=== PATIENT | male | born 1945 | race Caucasian/White ===

== ENCOUNTER 2020-07-09 11:27 | Inpatient (IN) | payer OTHER ==
[~2020-07-09] VITALS: Ht 180.3 cm; Wt 88.1 kg
--- NOTE | ~2020-07-09 | EMS ---
[address] [address] EMS Patient Care Report Name: KISHORE BRYAN Room #: REG MILY Chandler#: [id number] Admission: 07/09/20 Attend Phys: Discharge: Date of : 45 Report #: [id number] THIS REPORT FOR: //name// Report Transmitted: 07/09/2020 12:25 EMS Care Summary [facility] MED-ACT Incident [phone] @ 07/09/2020 10:36 Incident Location [address] [place] [id number] Patient KISHORE BRYAN Male, 75 Years 1945 Patient Address [address] [place] [address] Patient History Other,Dementia,Hypertension (HTN),Hyperlipidemia,Pneumonia,Depression,Neuropathy,Sepsis,Type 2 Diabetes,Respiratory Failure,Myocardial Infarction (NH),Novel Coronavirus (COVID-19), Patient Allergies Penicillin allergy, Patient Medications Other, Novolog, Moxifloxacin, Vitamin D, Lantus, Pantoprazole, Namenda, Bacitracin, Ascorbic Acid, Prednisone, Gabapentin, Chief Complaint Shortness of breath Disposition Transported No Lights/[place] Dispatch Reason Breathing Problem Transported To [address] [address] EMS Patient Care Report Name: KISHORE BRYAN Room #: REG MILY Chandler#: [id number] Admission: 07/09/20 Attend Phys: Discharge: Date of : 45 Report #: [id number] Narrative CHIEF COMPLAINT: Shortness of breath H.P.I.: Kishore Bryan, a 75 y.o.m., has been short of breath for 3 weeks. He has been dx'd COVID-19 (+) 3 weeks ago. He hasn't had an change in his shortness of breath, but his granddaughter wanted him transported today to be evaluated. UPON ARRIVAL: Kishore was sitting in a wheel chair at the nurse's station. He was awake and in no distress. O2 was being provided at 8 LPM via NRB mask (as applied by the facility nurse). [facility] was on scene and was obtaining v/s. They reported an initial SPO2 on 8 LPM at 94%. No room air SpO2 was provided. When asked, Kishore reported the O2 made his breathing easier. My partner reported he heard a staff member state Kishore had a diagnosis of pneumonia, as well. DISPOSITION: We assisted Kishore to the stretcher and secured him in the prescribed manner. He was taken to the ambulance, and before transport an ECG/ 12-Lead was obtained. Many changes were noted, consistent with long-term issues and not acute. His paperwork did not list any cardiac history. Transport was non-emergent to [facility] as directed by the nursing facility staff. No incidents or changes; v/s, ECG/ 12-Lead monitored. Kishore rested comfortably; he complained of being cold, so another blanket was applied. Info-only radio report parikh to [facility] ED. We were directed to room qo. We slid Mr. Bryan to the hospital bed. Report was received by Dr. Nikolas M.D. Initial Vitals @11:02P: 80,R: 20,BP: 153/54,Pain: 0/10,GCS: 15,SpO2: 95,Revised Trauma: 12, @11:06P: 114,Pain: 0/10,SpO2: 97,NH Suspected: false @11:16P: 90,R: 20,BP: 144/87,Pain: 0/10,GCS: 15,SpO2: 98,Revised Trauma: 12, @PTAP: 98,R: 24,BP: 152/84,Pain: 0/10,Temp: 97.5F,SpO2: 98, Assessments @10:55MENTAL:Person Oriented,Time Oriented,Place Oriented,Event Oriented,SKIN:HEENT:Head/Face: No Abnormalities,Eyes: No Abnormalities,Neck/Airway: No Abnormalities,LUNG SOUNDS:ABDOMEN:PELVIS//GI:EXTREMITIES:Right Leg: Edema,Left Leg: Edema,Right Arm: No Abnormalities,PULSE:Radial: 2+ Normal,NEURO: Impression Shortness of breath [facility] [address] [place] [address] EMS Patient Care Report Name: KISHORE BRYAN Room #: LUIS Chandler#: [id number] Admission: 07/09/20 Attend Phys: Discharge: Date of : 45 Report #: [id number] Procedures @11:0612-Lead ECGResponse: UnchangedSucceeded@PTASurgical Mask on PatientResponse: Unchanged@PTAOxygen FlowRate: 8 Device: Non Re-breather Mask (NRB) Response: ImprovedSucceeded@11:05Oxygen FlowRate: 15 Device: Non Re-breather Mask (NRB) Response: UnchangedSucceeded Timeline CAPACITY PLANNING ENGINEER,Surgical Mask on Patient,Response: Unchanged CAPACITY PLANNING ENGINEER,Oxygen FlowRate: 8 Device: Non Re-breather Mask (NRB) Response: ImprovedSucceeded, CAPACITY PLANNING ENGINEER,BP: 152/84 M,PULSE: 98,RR: 24 R,SPO2: 98 Ox,ETCO2: ,BG: ,PAIN: 0,GCS: , 10:35,Call Received 10:35,Psap Call 10:36,Dispatched 10:37,En Route 10:52,On Scene 10:52,At Patient 11:02,BP: 153/54 M,PULSE: 80,RR: 20 R,SPO2: 95 Ox,ETCO2: ,BG: ,PAIN: 0,GCS: 15, 11:05,Oxygen FlowRate: 15 Device: Non Re-breather Mask (NRB) Response: UnchangedSucceeded, 11:06,12-Lead ECG,Response: UnchangedSucceeded, 11:06,BP: / M,PULSE: 114,RR: R,SPO2: 97 Ox,ETCO2: ,BG: ,PAIN: 0,GCS: , 11:08,Depart Scene 11:16,BP: 144/87 M,PULSE: 90,RR: 20 R,SPO2: 98 Ox,ETCO2: ,BG: ,PAIN: 0,GCS: 15, 11:21,At Destination 11:46,Call Closed Disclaimer v1.1 Copyright 2020 [employer] This EMS Care Summary contains data elements from the applicable legal record (which may be displayed differently). It is designed to provide pertinent information for the following purposes: continuity of care, clinical quality, and state data reporting. The complete legal record is available to ED staff and administrators of the receiving hospital in [employer]'s Patient Tracker. All data is provided "as is."
[2020-07-09 11:28] VITALS: BP 134/64
[2020-07-09 12:05] LABS: ABSOLUTE NEUTROPHILS 7.1 thou/uL (1.4-8.2); BASOPHILS 0.3 % (0.0-2.0); EOSINOPHILS 3.1 % (0.0-3.0); HEMATOCRIT 31.8 % (42.0-52.0); HEMOGLOBIN 10.4 gm/dL (14.0-18.0); LYMPHOCYTES 4.7 % (24.0-44.0); MCH 30.8 pg (26.0-34.0); MCHC 32.6 g/dL (28.0-37.0); MCV 94.5 fL (80.0-100.0); MONOCYTES 3.1 % (1.0-8.0); PLATELET COUNT 247 thou/uL (150-400); POLYS 88.8 % (36.0-66.0); RBC 3.36 mil/uL (4.50-6.00); RDW 14.7 % (10.5-14.5)
[2020-07-09 12:27] LABS: ANION GAP 9 mmol/L (7-16); BUN 31 mg/dL (7-18); CALCIUM 8.2 mg/dL (8.5-10.1); CHLORIDE 102 mmol/L (98-107); CO2 26 mmol/L (21-32); CREATININE 1.5 mg/dL (0.7-1.3); GLUCOSE 234 mg/dL (74-106); SODIUM 137 mmol/L (136-145)
[2020-07-09 12:32] LABS: SGOT 11 U/L (15-37); SGPT 12 U/L (16-63); TOTAL BILIRUBIN 0.4 mg/dL (0.2-1.0); TOTAL PROTEIN 5.8 g/dL (6.4-8.2); TROPONIN-I <0.06 ng/mL (<0.06)
[2020-07-09 13:05] LABS: BE(vivo) -2.1 mmol/L (-2 to +3); PCO2 35.4 mmHg (35.0-45.0); PO2 49.8 mmHg (80.0-100.0); pH 7.412 (7.360-7.450)
[2020-07-09 17:35] VITALS: BP 134/64
[2020-07-09] MEDS ORDERED: ARICEPT 5 MG TAB5 MG PO (18:12)
[2020-07-09] MEDS ORDERED: VITAMIN C500 M1 PO (18:12)
[2020-07-09] MEDS ORDERED: ATORVASTATIN CA20 MG PO (18:13)
[2020-07-09] MEDS ORDERED: METFORMIN HCL500 M3 PO (18:14)
[2020-07-09] MEDS ORDERED: CARDURA2 MG PO (18:14)
[2020-07-09] MEDS ORDERED: TOPROL XL50 MG (18:15)
[2020-07-09] MEDS ORDERED: MIRTAZAPINE7.5 MG PO (18:15)
[2020-07-09] MEDS ORDERED: TRAMADOL 50 MG50 MG PO (18:16)
[2020-07-09] MEDS ORDERED: ZINC SULFATE220 MG PO (18:16)
[2020-07-09] MEDS ORDERED: ACCUPRIL10 MG PO (18:16)
[2020-07-09 18:17] VITALS: BP 132/81
--- NOTE | 2020-07-09 19:07 | NUR ---
PATIENT ADMIT TO UNIT AT 1845 ON 15L NRB. ALERT. WILL KEEP MONITOR.
--- NOTE | 2020-07-09 23:01 | NUR ---
COMPLAINS THAT HE THINKS HE HAD A TEMPERATURE AT THE [facility]. HE IS AFEBRILE TONIGHT AT TIME OF ADMISSION TO [facility]. ALERT AND ORIENTED FOR THE MOST PART, HE IS UNSURE OF HIS PLAN, AND REASON FOR ADMISSION. HE IS SLOW TO ANSWER QUESTIONS, NEEDS TIME TO ANSWER. ORIENTED TO ROOM AND SURROUNDINGS. DENIES PAIN. CAREPLAN INITIATED.
[2020-07-09 23:21] VITALS: BP 135/69
[2020-07-10 03:53] VITALS: BP 131/69
[2020-07-10 07:46] VITALS: BP 153/92
[2020-07-10 09:39] LABS: HEMATOCRIT 27.8 % (42.0-52.0); MCH 30.5 pg (26.0-34.0); MCHC 32.5 g/dL (28.0-37.0); RBC 2.95 mil/uL (4.50-6.00); RDW 14.4 % (10.5-14.5); WBC 6.7 thou/uL (4.0-11.0)
[2020-07-10 09:54] LABS: ANION GAP 7 mmol/L (7-16); BUN 29 mg/dL (7-18); CALCIUM 8.3 mg/dL (8.5-10.1); CHLORIDE 104 mmol/L (98-107); CO2 27 mmol/L (21-32); CREATININE 1.5 mg/dL (0.7-1.3); GLUCOSE 113 mg/dL (74-106); POTASSIUM 3.5 mmol/L (3.5-5.1); SODIUM 138 mmol/L (136-145); TROPONIN-I <0.06 ng/mL (<0.06)
[2020-07-10 11:31] LABS: BE(vivo) -9.3 mmol/L (-2 to +3); HCO3 19.8 mmol/L (22.0-26.0); PCO2 60.1 mmHg (35.0-45.0); PO2 61.6 mmHg (80.0-100.0); sO2 83.2 % (92.0-98.0)
[2020-07-10 11:32] LABS: pH 7.136 (7.360-7.450)
[2020-07-10 11:45] LABS: HEMATOCRIT 28.3 % (42.0-52.0); MCH 30.5 pg (26.0-34.0); MCHC 31.6 g/dL (28.0-37.0); MCV 96.4 fL (80.0-100.0); RBC 2.93 mil/uL (4.50-6.00); RDW 14.8 % (10.5-14.5); WBC 15.6 thou/uL (4.0-11.0)
[2020-07-10 11:48] LABS: CALCIUM 8.6 mg/dL (8.5-10.1); CREATININE 2.1 mg/dL (0.7-1.3); POTASSIUM 3.6 mmol/L (3.5-5.1)
[2020-07-10 11:49] LABS: INR 1.4; PLATELET COUNT 303 thou/uL (150-400); PROTIME 13.9 Seconds (9.3-11.4)
[2020-07-10 11:54] LABS: ALBUMIN 1.4 g/dL (3.4-5.0); TOTAL BILIRUBIN 0.4 mg/dL (0.2-1.0); TOTAL PROTEIN 5.2 g/dL (6.4-8.2)
--- NOTE | 2020-07-10 12:14 | EKG ---
[address] [address] ELECTROCARDIOGRAM REPORT Name: PRAVEENA BRYAN Room #: 246-P ADM IN M.R.#: [id number] Admission: 07/09/20 Attend Phys: Libby Lucio MD Discharge: Date of : 45 Report #: [id number] [facility] Test Date: 2020-07-10 Test Time: 11:36:22 Pat Name: PRAVEENA BRYAN Department: Room: 246 Gender: M Machine Greaser: MILAGROS : 1945 Requested By: Libby Lucio Order Number: [id number] MD: Margarito Moeller Measurements Intervals [place] Rate: 115 P: 33 NM: 150 QRS: 138 QRSD: 170 T: -21 QT: 371 QTc: 513 Interpretive Statements Sinus tachycardia RBBB and LPFB No previous ECG available for comparison Electronically Signed On 07-10-2020 12:14:33 PRODUCTION LINE WORKER by Margarito Moeller [email or web address] <ELECTRONICALLY SIGNED> By: Margarito Moeller MD 07/10/20 1214 1136 1136 Margarito Moeller MD /ARNOL
--- NOTE | 2020-07-10 12:15 | EKG ---
[address] [address] ELECTROCARDIOGRAM REPORT Name: PRAVEENA BRYAN Room #: 246-P ADM IN M.R.#: [id number] Admission: 07/09/20 Attend Phys: Libby Lucio MD Discharge: Date of : 45 Report #: [id number] [facility] Test Date: 2020-07-10 Test Time: 11:03:46 Pat Name: PRAVEENA BRYAN Department: Room: 246 Gender: M Hoop Expander: MILAGROS : 1945 Requested By: Sher Guardado Order Number: [id number] MD: Margarito Moeller Measurements Intervals [place] Rate: 136 P: 0 VA: 99 QRS: 133 QRSD: 169 T: -2 QT: 396 QTc: 596 Interpretive Statements Sinus tachycardia RBBB and LPFB No ischemic changes Baseline wander in lead(s) V1,V2 No previous ECG available for comparison Electronically Signed On 07-10-2020 12:15:10 TAPPER BALANCE WHEEL SCREW HOLE by Margarito Moeller [email or web address] <ELECTRONICALLY SIGNED> By: Margarito Moeller MD 07/10/20 1215 1103 02 Margarito Moeller MD /ARNOL
[2020-07-10 12:27] LABS: ABSOLUTE NEUTROPHILS 10.9 thou/uL (1.4-8.2); NUCLEATED RBCS 1 /100WBC
[2020-07-10 12:28] LABS: PLATELET ESTIMATE NORMAL
[2020-07-10 12:52] LABS: BE(vivo) -9.3 mmol/L (-2 to +3); HCO3 19.6 mmol/L (22.0-26.0); PO2 82.6 mmHg (80.0-100.0); pH 7.147 (7.360-7.450); sO2 92.6 % (92.0-98.0)
--- NOTE | 2020-07-10 13:01 | NUR ---
CONSULTED TO PLACE A PIV DUERING CODE BLUE, A CENTRAL LINE WAS PLACED POST CODE EMERGENTLY AND PER POLICY. CHEST XRAY CONFIRMED LINE IN PROXIMAL SVC AND RELEASED FOR USE
--- NOTE | 2020-07-10 13:27 | NUR ---
PATIENT NOTED TO LOSE PULSE AND HAVE PEA RHYTHM, FAMILY AT BEDSIDE TALKING WTIH DR. MCKINLEY. DETERMINED TO NOT INITIATE CODE BLUE AND TO WITHDRAW CARE ON PATIENT. PATIENT EXTUBATED BY RT AT 1325. ALL IV GTTS DISCONTINUED. PATIENT REMAINS PULSELESS WITH PEA ON THE MONITOR.
--- NOTE | 2020-07-10 14:11 | NUR ---
patient pronouned by 2 rns at 1339.
--- NOTE | 2020-07-11 10:34 | EKG ---
[address] [place] [address] ELECTROCARDIOGRAM REPORT Name: PRAVEENA BRYAN Room #: 246-P [facility] IN M.R.#: [id number] Admission: 07/09/20 Attend Phys: Libby Lucio MD Discharge: 07/10/20 Date of : 45 Report #: [id number] [facility] ED Test Date: 2020-07-09 Test Time: 11:44:18 Pat Name: PRAVEENA BRYAN Department: Room: [facility] Gender: M State Inspector: unknown : 1945 Requested By: Andrea Connor Order Number: [id number] MD: Brayan Lee Measurements Intervals [place] Rate: 79 P: 54 [place]: 154 QRS: 149 QRSD: 170 T: -19 QT: 393 QTc: 451 Interpretive Statements Sinus rhythm RBBB and LPFB No previous ECG available for comparison Electronically Signed On 07-11-2020 10:34:09 TRUCK RAILROAD AND BUS MOTOR MECHANIC by Brayan Lee [email or web address] <ELECTRONICALLY SIGNED> By: Brayan Lee MD, [facility] 07/11/20 1034 1144 1144 Brayan Lee MD, FACC /EPI
--- NOTE | 2020-07-11 15:57 | HC ---
[facility] [place] [address] CONSULTATION Name: PRAVEENA BRYAN Room #: 246-P [facility] IN M.R.#: [id number] Admission: 07/09/20 Attend Phys: Libby Lucio MD Discharge: 07/10/20 Date of : 45 Report #: [id number] THIS REPORT FOR: cc: Mic Tavarez MD, Christopher B. MD Couchonnal, Luis F. MD ~ REASON FOR CONSULTATION: Shortness of breath. HISTORY OF PRESENT ILLNESS: The patient is a 75-year-old with history of hypertension, diabetes, and recent COVID pneumonia, discharged from [facility] approximately 12 days ago. He has been slowly recovering, but over the past few days, he has been having increased shortness of breath and was readmitted to the hospital with sats in the 70s. He has been on nonrebreather. The patient was up on the third floor and had a PEA arrest, required CPR, pressors, never required any ICD shocks. He had 2 EKGs, which I reviewed showing sinus tachycardia with a right bundle branch block. No ischemic changes. He is being transferred to the ICU with central line placement. He was coded few more times and is currently on full dose pressors with systolics in the 60s. PAST MEDICAL HISTORY: As above. SOCIAL HISTORY: Quit tobacco. MEDICATIONS: Have been reviewed. ALLERGIES: INCLUDE PENICILLIN. PHYSICAL EXAMINATION: VITAL SIGNS: He has been afebrile. Currently, he is tachycardic with systolics in the 60s, sats in the low 90s on ventilator. GENERAL: The patient is intubated and sedated. DIAGNOSTIC DATA: EKG showed no evidence of ischemia. His telemetry shows sinus tachycardia. There are no arrhythmias noted. His chest x-rays show bilateral pneumonia, which I have visualized. LABORATORY DATA: White count 15, hemoglobin 9, platelets 300. Blood gas, pH 7.1, pCO2 of 58, and pO2 of 82. INR 1.4. Chemistry: Sodium 145, potassium 3.6, BUN 27, creatinine 2.1. Lactic acid 9. Troponins x 3 are normal. ProBNP 29,000. ASSESSMENT AND PLAN: In summary, this 75-year-old with COVID pneumonia, worsening respiratory status with cardiac arrest with PEA, now in the ICU on multiple pressors and hypotensive. The patient is likely with evidence of sepsis secondary to COVID. Would continue with current supportive measures. [address] [address] CONSULTATION Name: PRAVEENA BRYAN Room #: 246-P DIS IN M.R.#: [id number] Admission: 07/09/20 Attend Phys: Libby Lucio MD Discharge: 07/10/20 Date of : 45 Report #: [id number] evidence of ischemia on EKG and normal troponins. I do not believe coronary ischemia is coming into play in this situation. We will continue to follow. <ELECTRONICALLY SIGNED> By: Margarito Moeller MD 07/11/20 1557 1313 1427 Margarito Moeller MD /nt
== END 2020-07-10 13:39 | DRG 871 ==
LOC: ER 11:27 → 3W 13:52 → EROBS 13:52 → 3W 19:04 → ICU 07-10 12:00
PROVIDERS: Emergency Medicine; ADMIT Hospitalist; ATTEND Hospitalist
PROC: 5A09357 Assistance with Respiratory Ventilation, Less than 24 Consecutive Hours, Continuous Positive Airway Pressure (ICD-10-PCS; principal; 2020-07-09)
PROC: 5A0935A Assistance with Respiratory Ventilation, Less than 24 Consecutive Hours, High Flow/Velocity Cannula (ICD-10-PCS; 2020-07-10)
PROC: 5A12012 Performance of Cardiac Output, Single, Manual (ICD-10-PCS; 2020-07-10)
DX: A41.9 Sepsis, unspecified organism (principal); E43 Unspecified severe protein-calorie malnutrition; U07.1 COVID-19; J12.82 Pneumonia due to coronavirus disease 2019; J96.21 Acute and chronic respiratory failure with hypoxia; I26.99 Other pulmonary embolism without acute cor pulmonale; N17.9 Acute kidney failure, unspecified; G93.40 Encephalopathy, unspecified; E87.70 Fluid overload, unspecified; E78.5 Hyperlipidemia, unspecified; I50.9 Heart failure, unspecified; I11.0 Hypertensive heart disease with heart failure; E11.40 Type 2 diabetes mellitus with diabetic neuropathy, unspecified; D64.9 Anemia, unspecified; Z66 Do not resuscitate; F32.9 Major depressive disorder, single episode, unspecified; I46.9 Cardiac arrest, cause unspecified; Z88.0 Allergy status to penicillin; Z87.891 Personal history of nicotine dependence; Z68.27 Body mass index [BMI] 27.0-27.9, adult; I25.2 Old myocardial infarction; Z51.5 Encounter for palliative care
CPT/HCPCS: 10879